=== PATIENT | male | born 1950 | race Caucasian/White ===

== ENCOUNTER → 2018-04-13 10:09 | Outpatient (CLI) | payer OTHER, SELFPAY ==
[2018-04-13 12:10] LABS: Add Manual Diff / Slide Review NO; Basophils Percent Auto 1.5 % (0-2); Eosinophils Percent Auto 7.5 % (2-4); Hematocrit 45.5 % (41-53); Hemoglobin 15.1 g/dL (13.5-17.5); Lymphocytes Percent Auto 27.1 % (25-40); Mean Corpuscular HGB Conc 33.3 % (30-36); Mean Corpuscular Volume 93.2 fL (80-100); Monocytes Percent Auto 12.5 % (3-14); Neutrophils Absolute Auto 3000 /uL (3000-5900); Neutrophils Percent Auto 51.4 % (50-75); Platelet Count 241 X10^3/uL (150-400); Red Blood Cell Count 4.88 X10^6/uL (4.5-5.9); Red Cell Distribution Width 13.3 % (11.6-14.8); White Blood Cell Count 5.9 X10^3/uL (4.5-11.0)
[2018-04-13 12:21] LABS: Alanine Aminotransferase 22 IU/L (21-72); Albumin 4.4 g/dL (3.5-5.0); Albumin Globulin Ratio 1.7 (1.0-2.8); Alkaline Phosphatase 50 U/L (38-126); Aspartate Aminotransferase 23 IU/L (17-59); BUN Creatinine Ratio 24.4 (6-22); Bilirubin Total 0.5 mg/dL (0.2-1.3); Blood Urea Nitrogen 22 mg/dL (9-20); Calcium 9.4 mg/dL (8.4-10.2); Carbon Dioxide 30 mmol/L (22-32); Chloride 103 mmol/L (98-107); Cholesterol 188 mg/dL (140-199); Estimated Glomerular Filt Rate > 60.0 mL/min (>60); Globulin 2.6 g/dL (1.7-4.1); Glucose 92 mg/dL (80-110); HDL Cholesterol 64 mg/dL (40-60); HEMOLYSIS < 15 (0-50); LDL Cholesterol Calculated 111 mg/dL (<100); Potassium 4.4 mmol/L (3.4-5.1); Sodium 143 mmol/L (137-145); Triglycerides 64 mg/dL (35-150)
[2018-04-13 12:54] LABS: Prostate Specific Antigen Scrn 2.52 ng/mL (0.1-4.0)
== END ==
PROVIDERS: PCP Family Medicine; Visit Provider Family Medicine
DX: E78.5 Hyperlipidemia, unspecified (principal); Z12.5 Encounter for screening for malignant neoplasm of prostate
CPT/HCPCS: 36415; 80053; 80061; 84443; 85025; G0103

== ENCOUNTER → 2019-05-25 08:18 | Outpatient (CLI) | payer OTHER, SELFPAY ==
[2019-05-25 09:06] LABS: Add Manual Diff / Slide Review NO; Basophils Absolute Auto 100 /uL (0-100); Basophils Percent Auto 1.3 % (0-2); Eosinophils Absolute Auto 400 /uL (0-450); Eosinophils Percent Auto 7.8 % (2-4); Hematocrit 44.3 % (41-53); Lymphocytes Absolute Auto 1300 /uL (1100-4500); Mean Corpuscular HGB Conc 33.9 % (30-36); Mean Corpuscular Hemoglobin 31.1 PG (26-34); Mean Corpuscular Volume 91.7 fL (80-100); Monocytes Absolute Auto 700 /uL (0-900); Monocytes Percent Auto 13.2 % (3-14); Neutrophils Absolute Auto 2800 /uL (1500-7000); Neutrophils Percent Auto 52.7 % (50-75); Platelet Count 237 X10^3/uL (150-400); Red Blood Cell Count 4.82 X10^6/uL (4.5-5.9); Red Cell Distribution Width 13.5 % (11.6-14.8); White Blood Cell Count 5.4 X10^3/uL (4.5-11.0)
[2019-05-25 09:20] LABS: Alanine Aminotransferase 15 IU/L (<50); Albumin 4.3 g/dL (3.5-5.0); Albumin Globulin Ratio 1.6 (1.0-2.8); Alkaline Phosphatase 52 U/L (38-126); Aspartate Aminotransferase 22 IU/L (17-59); BUN Creatinine Ratio 21.1 (6-22); Bilirubin Total 0.7 mg/dL (0.2-1.3); Blood Urea Nitrogen 19 mg/dL (9-20); Calcium 9.7 mg/dL (8.4-10.2); Carbon Dioxide 31 mmol/L (22-32); Chloride 103 mmol/L (98-107); Cholesterol 183 mg/dL (140-199); Estimated Glomerular Filt Rate > 60.0 mL/min (>60); Globulin 2.7 g/dL (1.7-4.1); Glucose 99 mg/dL (80-110); HDL Cholesterol 54 mg/dL (40-60); HEMOLYSIS < 15 (0-50); LDL Cholesterol Calculated 107 mg/dL (<100); Potassium 4.2 mmol/L (3.4-5.1); Sodium 142 mmol/L (137-145); Triglycerides 109 mg/dL (35-150)
[2019-05-25 09:46] LABS: Prostate Specific Antigen Scrn 2.96 ng/mL (0.1-4.0)
[2019-05-25 11:08] LABS: Thyroid Stimulating Hormone 4.61 uIU/mL (0.47-4.68)
== END ==
PROVIDERS: PCP Family Medicine; Visit Provider Family Medicine
DX: Z12.5 Encounter for screening for malignant neoplasm of prostate (principal); Z13.1 Encounter for screening for diabetes mellitus; Z13.220 Encounter for screening for lipoid disorders; Z13.29 Encounter for screening for other suspected endocrine disorder; Z13.6 Encounter for screening for cardiovascular disorders
CPT/HCPCS: 36415; 80053; 80061; 84443; 85025; G0103

== ENCOUNTER → 2020-10-09 09:41 | Outpatient (CLI) | payer OTHER, SELFPAY ==
[2020-10-09 10:22] LABS: COVID19 -Nasal RAPID Negative (Negative)
== END ==
PROVIDERS: PCP Family Medicine; Visit Provider Surgery
DX: Z20.822 Contact with and (suspected) exposure to COVID-19 (principal)
CPT/HCPCS: 87635; C9803

== ENCOUNTER 2020-10-12 08:10 | Day surgery (SDC) | payer OTHER, SELFPAY ==
--- NOTE | 2020-10-12 | PATH_ITS ---
[facility] Accession Number: [id number] . 01 Material submitted: . PART A: colon - DESCENDING COLON POLYP PART B: colon - DESCENDING COLON POLYP 30CM . 01 Clinical history: . SCREENING COLONOSCOPY . 02 Diagnosis: A. Descending Colon, Polyp, Biopsy: Sessile serrated adenoma. . B. Descending Colon, Polyp 30 cm, Biopsy: Tubular adenoma. [facility] 10/14/2020 1338 Local . 02 Electronically signed: . Irais Rosen MD, Pathologist NPI- [id number] . 01 Gross description: . Part A: DESCENDING COLON POLYP: Received in formalin is 1 fragment(s) of lopes, soft tissue measuring 0.4 x 0.3 x 0.3 cm submitted entirely in 1 cassette(s) Part B: DESCENDING COLON POLYP 30CM: Received in formalin is 1 fragment(s) of lopes, soft tissue measuring 1.0 x 0.6 x 0.3 cm submitted entirely in 1 cassette(s) /PREMA 10/13/2020 0917 Local . 02 Pathologist provided ICD-10: D12.4 . 02 CPT . 063513, [id number] Performed at: 01 [facility] [address], [place], [place] [id number] MD Jose Enciso MD Phone: [phone] Performed at: 02 [facility] [address] [place], [place] [id number] MD Irais Rosen MD Phone: [phone]
[2020-10-12] MEDS: LACTATED RINGERS 1,000 ML 200 ML IV (08:36)
[2020-10-12 08:37] VITALS: BP 110/70; PULSE 51; RESP 14; TEMP 36.2; O2SAT 96; BMI 24.3
--- NOTE | 2020-10-12 09:42 | PM.HP.1 ---
History of Present Illness History of Present Illness Date Patient Seen: 10/12/20 Time Patient Seen: 09:42 Chief complaint: SCREENING COLONOSCOPY Narrative: The patient presents for colorectal sreening. He had a previously normal colonoscopy 12 years ago. No personal or family history of colon cancer. On further history denies any recent gastrointestinal symptoms. No nausea, vomiting, abdominal pain, loss of appetite, unexplained weight loss, change in bowel habits, diarrhea, constipation, melena, hematochezia, or bright red blood per rectum. Patient History Medical History Anxiety (~2011) Dermatitis Rash Family & Social History Family History Father Heart disease Social History: household members spouse Tobacco & Substance use: Smoking Status Never smoker alcohol intake current alcohol intake frequency 0-2 drinks per day Substance Use Type does not use Meds Home Medications and Allergies Home Medications Medication Instructions Recorded Confirmed Type triamcinolone acetonide 0.1 % 1 applictn TOP BID #30 gram 10/18/19 10/12/20 Rx topical cream fluoxetine 20 mg capsule 20 mg PO QDAY #90 cap 06/23/20 10/12/20 Rx lovastatin 40 mg tablet 40 mg PO HS #90 tab 06/23/20 10/12/20 Rx Allergies Allergy/AdvReac Type Severity Reaction Status Date / Time No Known Drug Allergies Allergy Verified 10/12/20 08:31 Review of Systems Review of Systems ROS: Yes All systems reviewed with the patient and are negative except as otherwise documented Exam Vital Signs (past 8 hours): - 10/12/20 08:37 Temperature 97.1 F L Pulse Rate 51 L Respiratory Rate 14 Blood Pressure 110/70 Pulse Oximetry 96 Oxygen Delivery Method Room Air Narrative Exam Narrative: GENERAL-well developed adult male, no acute distress HEENT-no scleral icterus, hearing intact NECK-no JVD, trachea midline CVS- regular rate, no peripheral edema RESP-unlabored respiratory effort, no audible wheezing GI-soft, nontender nondistended MSK-no cyanosis or clubbing, extremities without deformity SKIN-warm, dry NEURO-alert and oriented, no focal deficits PYSCH-Appropriate mood and affect Assessment & Plan Assessment & Plan narrative: The patient requires colorectal screening and colonoscopy is recommended. Technical details were discussed. Risks, benefits, alternatives explained. Risks including but not limited to myocardial infarction, aspiration, bleeding, pain, missed lesion, incomplete examination, need for further radiographic studies, colonic perforation, and need for major abdominal surgery were discussed. All questions were answered to their satisfaction, and they are in agreement with this plan.
[2020-10-12] MEDS: MIDAZOLAM 5 MG/5 ML VIAL IV (09:51)
[2020-10-12] MEDS: fentaNYL 250 MCG/5 ML INJ IV (09:51)
[2020-10-12 10:10] VITALS: BP 132/74; PULSE 48; RESP 14; TEMP 36.6; O2SAT 97
--- NOTE | 2020-10-12 10:11 | P.OP.ENDO_ITS ---
Operative Date/Time/Diagnoses Date of procedure: 10/12/20 Time of procedure: 10:11 Pre-op diagnosis: Screening colonoscopy Post-op diagnosis: same Procedure & Clinicians Study performed: Colonoscopy, polypectomy Same procedure as scheduled: Yes Indications: Screening colonoscopy Surgeon: Jorden Galdamez Procedure Notes Procedure in detail: Medications: Conscious sedation using 5 mg IV midazolam and 150 mcg IV of fentanyl The history and physical was performed/updated and the patient is ASA class is 2. The procedure was discussed in detail with the patient. Potential risks complications including infection, bleeding, missed diagnosis, perforation, need for surgery, and were explained. Their questions were answered and informed consent was obtained. Patient was brought to the procedure room and placed standard monitoring eq uipment. The patient's vital signs were monitored continuously throughout the entire procedure. Prior to starting time-out was performed. The patient was placed in the left lateral recumbent position. Procedural sedation was administered. Examination began with a thorough inspection of the perianal area there was no evidence of fissures, fistulae, external hemorrhoids or cutaneous malignancy. The colonoscopy scope was then placed into the anal canal and was advanced to the cecum, which was identified by the ileocecal valve, the appendiceal orifice and the confluence of the taenia. The scope was then slowly withdrawn examining colon thoroughly in all directions, irrigating it of any residual stool. 1. Descending colonic polyp 5 mm with biopsy forceps 2. Descending colonic polyp 1 cm removed with cold snare from 30 cm from the anal verge 3. Sigmoid diverticulosis The patient tolerated the procedure well. They will be discharged once criteria are met. The prep was of good/excellent quality. The withdrawl time was 11 minutes. The sedation time was 30 minutes. Specimen(s): other (Descending colonic polyp x2) Complications: none Impression: Colonic polyps Post-procedure Recommendations: Colonscopy in 5 years Disposition: same day surgery
[2020-10-12 10:15] VITALS: BP 132/74; PULSE 41; RESP 14; O2SAT 98
[2020-10-12 10:20] VITALS: BP 121/56; PULSE 43; RESP 14; O2SAT 98
[2020-10-12 10:25] VITALS: BP 112/67; PULSE 47; RESP 14; O2SAT 98
[2020-10-12 10:34] VITALS: BP 117/65; PULSE 45; RESP 71; TEMP 36.2; O2SAT 99
== END 2020-10-12 10:43 | disposition home or self-care (01) ==
PROVIDERS: PCP Family Medicine; Referring Provider Surgery; Visit Provider Surgery
PROC: 0DJD8ZZ Inspection of Lower Intestinal Tract, Via Natural or Artificial Opening Endoscopic (ICD-10-PCS; CPT 45378; principal; 2020-10-12 09:15)
DX: Z12.11 Encounter for screening for malignant neoplasm of colon (principal); F41.9 Anxiety disorder, unspecified; K57.30 Diverticulosis of large intestine without perforation or abscess without bleeding; D12.4 Benign neoplasm of descending colon
CPT/HCPCS: 45385; 45380; 99152; 99153; J2250; J3010

== ENCOUNTER → 2021-02-18 07:33 | Outpatient (CLI) | payer OTHER, SELFPAY ==
[2021-02-18 08:35] LABS: Add Manual Diff / Slide Review NO; Basophils Absolute Auto 100 /uL (0-100); Basophils Percent Auto 0.9 % (0-2); Eosinophils Absolute Auto 400 /uL (0-450); Eosinophils Percent Auto 4.6 % (2-4); Hematocrit 44.8 % (41-53); Hemoglobin 14.4 g/dL (13.5-17.5); Lymphocytes Absolute Auto 1800 /uL (1100-4500); Lymphocytes Percent Auto 21.1 % (25-40); Mean Corpuscular HGB Conc 32.2 % (30-36); Mean Corpuscular Hemoglobin 30.2 PG (26-34); Mean Corpuscular Volume 93.8 fL (80-100); Monocytes Absolute Auto 1100 /uL (0-900); Monocytes Percent Auto 12.7 % (3-14); Neutrophils Absolute Auto 5100 /uL (1500-7000); Neutrophils Percent Auto 60.7 % (50-75); Platelet Count 239 X10^3/uL (150-400); Red Blood Cell Count 4.78 X10^6/uL (4.5-5.9); Red Cell Distribution Width 13.6 % (11.6-14.8); White Blood Cell Count 8.4 X10^3/uL (4.5-11.0)
[2021-02-18 09:05] LABS: Alanine Aminotransferase 16 IU/L (<50); Albumin 4.1 g/dL (3.5-5.0); Albumin Globulin Ratio 1.8 (1.0-2.8); Alkaline Phosphatase 51 U/L (38-126); Aspartate Aminotransferase 21 IU/L (17-59); BUN Creatinine Ratio 24.7 (6-22); Bilirubin Total 0.6 mg/dL (0.2-1.3); Blood Urea Nitrogen 20 mg/dL (9-20); Calcium 9.8 mg/dL (8.4-10.2); Carbon Dioxide 31 mmol/L (22-32); Chloride 102 mmol/L (98-107); Cholesterol 214 mg/dL (140-199); Estimated Glomerular Filt Rate > 60.0 mL/min (>60); Globulin 2.3 g/dL (1.7-4.1); Glucose 94 mg/dL (80-110); HDL Cholesterol 75 mg/dL (40-60); HEMOLYSIS < 15 (0-50); LDL Cholesterol Calculated 117 mg/dL (<100); Potassium 4.3 mmol/L (3.4-5.1); Sodium 138 mmol/L (137-145); Total Protein 6.4 g/dL (6.3-8.2); Triglycerides 112 mg/dL (35-150)
[2021-02-18 09:32] LABS: Prostate Specific Antigen Scrn 3.27 ng/mL (0.1-4.0)
== END ==
PROVIDERS: PCP Family Medicine; Referring Provider Family Medicine; Visit Provider Family Medicine
DX: E78.2 Mixed hyperlipidemia (principal); F32.9 Major depressive disorder, single episode, unspecified; L30.9 Dermatitis, unspecified; R21 Rash and other nonspecific skin eruption; Z12.5 Encounter for screening for malignant neoplasm of prostate
CPT/HCPCS: 36415; 80053; 80061; 85025; G0103

== ENCOUNTER → 2022-02-21 08:15 | Outpatient (CLI) | payer OTHER, SELFPAY ==
[2022-02-21 09:29] LABS: Add Manual Diff / Slide Review NO; Basophils Absolute Auto 0 /uL (0-100); Basophils Percent Auto 0.5 % (0-2); Eosinophils Absolute Auto 200 /uL (0-450); Eosinophils Percent Auto 3.2 % (2-4); Hemoglobin 14.7 g/dL (13.5-17.5); Lymphocytes Absolute Auto 1600 /uL (1100-4500); Lymphocytes Percent Auto 28.4 % (25-40); Mean Corpuscular HGB Conc 33.4 % (30-36); Mean Corpuscular Hemoglobin 30.7 PG (26-34); Mean Corpuscular Volume 91.8 fL (80-100); Monocytes Absolute Auto 700 /uL (0-900); Monocytes Percent Auto 13.5 % (3-14); Neutrophils Absolute Auto 3000 /uL (1500-7000); Neutrophils Percent Auto 54.4 % (50-75); Platelet Count 275 X10^3/uL (150-400); Red Cell Distribution Width 13.2 % (11.6-14.8); White Blood Cell Count 5.6 X10^3/uL (4.5-11.0)
[2022-02-21 11:08] LABS: Alanine Aminotransferase 15 IU/L (<50); Albumin 4.1 g/dL (3.5-5.0); Albumin Globulin Ratio 1.6 (1.0-2.8); Alkaline Phosphatase 58 U/L (38-126); Aspartate Aminotransferase 19 IU/L (17-59); BUN Creatinine Ratio 20.9 (6-22); Bilirubin Total 0.5 mg/dL (0.2-1.3); Blood Urea Nitrogen 19 mg/dL (9-20); Calcium 9.2 mg/dL (8.4-10.2); Carbon Dioxide 31 mmol/L (22-32); Chloride 100 mmol/L (98-107); Cholesterol 193 mg/dL (140-199); Estimated Glomerular Filt Rate > 60 mL/min (>60); Globulin 2.6 g/dL (1.7-4.1); Glucose 92 mg/dL (80-110); HDL Cholesterol 50 mg/dL (40-60); HEMOLYSIS < 15 (0-50); LDL Cholesterol Calculated 118 mg/dL (<100); Potassium 4.6 mmol/L (3.4-5.1); Sodium 140 mmol/L (137-145); Total Protein 6.7 g/dL (6.3-8.2); Triglycerides 127 mg/dL (35-150)
[2022-02-21 11:31] LABS: Prostate Specific Antigen Scrn 3.52 ng/mL (0.1-4.0)
== END ==
PROVIDERS: PCP Family Medicine; Referring Provider Family Medicine; Visit Provider Family Medicine
DX: Z12.5 Encounter for screening for malignant neoplasm of prostate (principal); E78.2 Mixed hyperlipidemia; F32.9 Major depressive disorder, single episode, unspecified; F41.9 Anxiety disorder, unspecified
CPT/HCPCS: 36415; 80053; 80061; 85025; G0103

== ENCOUNTER → 2022-03-29 08:31 | Outpatient (CLI) | payer OTHER, SELFPAY ==
--- NOTE | 2022-03-29 08:33 | DI.RAD.S_ITS ---
PROCEDURE: XR FOOT RT MIN 3V INDICATIONS: RIGHT FOOT PAIN TECHNIQUE: 3 views of the foot were acquired. COMPARISON: [facility], , FOOT 3V RIGHT, 01/09/2015, 16:28. FINDINGS: Bones: No fractures or dislocations. No suspicious bony lesions. Soft tissues: No tibiotalar joint effusion. Again noted is thickening of the Achilles tendon near the attachment on the calcaneus with the presence of linear ossification consistent with remote tear. There is a plantar calcaneal spur. IMPRESSION: 1. Findings consistent with remote partial tear of the Achilles tendon. No evidence of acute bony abnormality of the right foot. Dictated by: Zay Muniz M.D. on 03/29/2022 at 11:11 Approved by: Zay Muniz M.D. on 03/29/2022 at 11:13
== END ==
PROVIDERS: PCP Family Medicine; Referring Provider Family Medicine; Visit Provider Family Medicine
DX: M79.671 Pain in right foot (principal); M77.31 Calcaneal spur, right foot
CPT/HCPCS: 73630

== ENCOUNTER → 2022-10-13 10:25 | Outpatient (CLI) | payer OTHER, SELFPAY ==
--- NOTE | 2022-10-13 10:26 | DI.RAD.S_ITS ---
PROCEDURE: XR KNEE RT 3V INDICATIONS: right knee pain TECHNIQUE: 3 views of the knee were acquired. COMPARISON: None. FINDINGS: Bones: Well corticated ossicle inferior to the patella. Osteophytic lipping most pronounced at the patella femoral compartment. No dislocations. No suspicious bony lesions. Soft tissues: Small joint effusion. No suspicious soft tissue calcifications. IMPRESSION: Well corticated ossicle inferior to the patella. This could be the sequelae of prior injury or bipartite patella. Moderate degenerative change at the patellofemoral compartment. MRI may be helpful for further evaluation. Dictated by: Gonsalo Dean M.D. on 10/13/2022 at 13:06 Approved by: Gonsalo Dean M.D. on 10/13/2022 at 13:09
== END ==
PROVIDERS: PCP Family Medicine; Referring Provider Family Medicine; Visit Provider Family Medicine
DX: M25.461 Effusion, right knee (principal); M25.561 Pain in right knee
CPT/HCPCS: 73562

== ENCOUNTER → 2023-01-03 10:48 | Outpatient (CLI) | payer OTHER, SELFPAY ==
--- NOTE | 2023-01-03 | DI.MRI.S_ITS ---
PROCEDURE: MR KNEE RT WO CON INDICATIONS: Unspecified internal derangement of right knee TECHNIQUE: Noncontrast sagittal PD fast spin echo and T2 fast spin echo with fat saturation, sagittal 3-D FLASH with fat saturation; coronal T1 spin echo and PD fast spin echo with fat saturation, and axial PD fast spin echo with fat saturation through the knee. COMPARISON: [facility], CR, XR KNEE RT 3V, 10/13/2022, 10:42. [facility], CR, XR KNEE STANDING BILATERAL, 12/27/2022, 14:13. FINDINGS: Image quality: Excellent. Anterior Cruciate Ligament: Intact. Posterior Cruciate Ligament: Intact. Medial Collateral Ligament: Mild thickening of the proximal medial collateral ligament is most likely secondary to a remote prior low-grade sprain. Lateral Collateral Ligament: Intact. Medial Meniscus: Complex tearing of the medial meniscus is seen. There is a radial component at the posterior root attachment measuring 6 mm in width with extrusion of the meniscal body beyond the femorotibial joint line. Superimposed horizontal oblique tearing is seen at the meniscal body extending to the middle third of the tibial articular surface with a small amount of inferiorly displaced meniscal tissue extending into the medial tibial gutter. Lateral Meniscus: Intact. Medial and Lateral Tendons: The semimembranosus tendon insertions and meniscocapsular junction appear intact. Visualized portions of the pes anserinus tendons appear normal. No abnormal bursal fluid. The long and short heads of the biceps femoris tendon appear intact. The popliteus tendon appears intact. No signs of posterolateral corner injury. Iliotibial band appears normal. Anterior Structures: The quadriceps and patellar tendons appear intact. No patellar subluxation. No femoral trochlear dysplasia or ventral trochlear prominence. Prominent soft tissue edema is seen at the superolateral aspect of the infrapatellar fat pad. Bones: Nondepressed subchondral fracture is seen in the weight-bearing portion of the medial femoral condyle measuring approximately 18 x 7 mm. There is focal fissuring of the overlying articular cartilage. Moderate osseous edema is seen throughout the medial femoral condyle. Small nonedematous ossification at the inferior pole of the patella may be secondary to remote prior trauma or prior Sinding Nelson Chayito disease. Medial Femorotibial Cartilage: High-grade versus full-thickness cartilage loss in the weight-bearing portion of the medial femorotibial compartment. Lateral Femorotibial Cartilage: Grade 2 chondromalacia at the posterior weight-bearing portion of the lateral tibial plateau. Patellofemoral Cartilage: Grade 3-4 chondromalacia at the median ridge/medial facet of the patella with subchondral cystic changes as well as at the medial femoral trochlea. Soft Tissues: A small amount of joint fluid is present. Small medial popliteal cyst. The musculature surrounding the knee is normal in bulk. Nonspecific prepatellar subcutaneous soft tissue edema. IMPRESSION: 1. Nondepressed subchondral fracture at the central weight-bearing portion of the medial femoral condyle with moderate surrounding osseous edema. 2. Complex tearing of the medial meniscus with a radial component at the posterior root attachment and a horizontal oblique component at the meniscal body extending to the middle third of the tibial articular surface with a small amount of meniscal tissue displaced inferiorly into the medial tibial gutter. 3. Remote prior grade 1 sprain of the proximal medial collateral ligament. 4. 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 Mild grade 2 chondromalacia in the lateral compartment. 5. Ossification at the inferior pole of the patella is likely related to prior trauma versus prior Sinding Nelson Chayito disease. Moderate edema at the superolateral aspect of the infrapatellar fat pad can be seen in the setting of lateral femoral condyle-patellar tendon friction syndrome. 6. Small joint effusion. Small medial popliteal cyst. Approved by: Fernando Gaines M.D. on 01/03/2023 at 14:20
== END ==
PROVIDERS: PCP Family Medicine; Referring Provider Orthopaedic Surgery Foot and Ankle Surgery; Visit Provider Orthopaedic Surgery Foot and Ankle Surgery
DX: S72.431A Displaced fracture of medial condyle of right femur, initial encounter for closed fracture (principal); S83.231A Complex tear of medial meniscus, current injury, right knee, initial encounter; S83.411A Sprain of medial collateral ligament of right knee, initial encounter; M22.41 Chondromalacia patellae, right knee; M25.461 Effusion, right knee; M71.21 Synovial cyst of popliteal space [Baker], right knee; M23.91 Unspecified internal derangement of right knee
CPT/HCPCS: 73721

== ENCOUNTER → 2023-05-30 08:27 | Outpatient (CLI) | payer OTHER, SELFPAY ==
[2023-05-30 09:38] LABS: Add Manual Diff / Slide Review NO; Basophils Absolute Auto 100 /uL (0-100); Basophils Percent Auto 1.3 % (0-2); Eosinophils Absolute Auto 500 /uL (0-450); Eosinophils Percent Auto 8.2 % (2-4); Hemoglobin 14.7 g/dL (13.5-17.5); Lymphocytes Absolute Auto 1400 /uL (1100-4500); Lymphocytes Percent Auto 24.7 % (25-40); Mean Corpuscular HGB Conc 34.2 % (30-36); Mean Corpuscular Hemoglobin 31.4 PG (26-34); Mean Corpuscular Volume 91.9 fL (80-100); Monocytes Absolute Auto 600 /uL (0-900); Monocytes Percent Auto 11.1 % (3-14); Neutrophils Absolute Auto 3100 /uL (1500-7000); Neutrophils Percent Auto 54.7 % (50-75); Platelet Count 265 X10^3/uL (150-400); Red Blood Cell Count 4.68 X10^6/uL (4.5-5.9); Red Cell Distribution Width 13.5 % (11.6-14.8); White Blood Cell Count 5.7 X10^3/uL (4.5-11.0)
[2023-05-30 10:27] LABS: Alanine Aminotransferase 15 IU/L (<50); Albumin Globulin Ratio 1.5 (1.0-2.8); Alkaline Phosphatase 53 U/L (38-126); Aspartate Aminotransferase 22 IU/L (17-59); BUN Creatinine Ratio 22.1 (6-22); Bilirubin Total 0.7 mg/dL (0.2-1.3); Blood Urea Nitrogen 19 mg/dL (9-20); Calcium 9.9 mg/dL (8.4-10.2); Carbon Dioxide 29 mmol/L (22-32); Chloride 101 mmol/L (98-107); Cholesterol 208 mg/dL (140-199); Estimated Glomerular Filt Rate > 60 mL/min (>60); Globulin 2.6 g/dL (1.7-4.1); Glucose 97 mg/dL (80-110); HDL Cholesterol 70 mg/dL (40-60); HEMOLYSIS < 15 (0-50); LDL Cholesterol Calculated 119 mg/dL (<100); Potassium 4.8 mmol/L (3.4-5.1); Sodium 137 mmol/L (137-145); Total Protein 6.6 g/dL (6.3-8.2); Triglycerides 96 mg/dL (35-150)
[2023-05-30 11:00] LABS: Prostate Specific Antigen 3.25 ng/mL (0.10-4.00)
[2023-05-31 03:11] LABS: Apolipoprotein B 94 mg/dL (<90)
== END ==
PROVIDERS: PCP Family Medicine; Referring Provider Family Medicine; Visit Provider Family Medicine
DX: Z13.6 Encounter for screening for cardiovascular disorders (principal); Z12.5 Encounter for screening for malignant neoplasm of prostate; Z79.899 Other long term (current) drug therapy
CPT/HCPCS: 36415; 80053; 80061; 82172; 83695; 84153; 85025

== ENCOUNTER → 2023-09-04 09:10 | Outpatient (CLI) | payer OTHER, SELFPAY ==
--- NOTE | 2023-09-04 09:11 | DI.US.S_ITS ---
PROCEDURE: US CAROTID DOPPLER BI INDICATIONS: Cardiomegaly;Bruit of left carotid TECHNIQUE: Color and pulse Doppler interrogation was performed of both carotid systems, with image documentation and velocity measurements. COMPARISON: None. FINDINGS: Stenosis calculations are based on SRU (Society of Radiologists in Ultrasound) criteria. The flow velocities and the arterial waveforms are normal within both carotid arterial systems. Atherosclerotic plaque is seen on both sides. The estimated degree of internal carotid artery stenosis is less than 50%. Antegrade flow is confirmed within both vertebral arteries. IMPRESSION: No hemodynamically significant stenosis is seen. Atherosclerotic plaque is noted bilaterally. Dictated by: Sage Walls M.D. on 09/04/2023 at 10:38 Approved by: Sage Walls M.D. on 09/04/2023 at 10:38
--- NOTE | 2023-09-04 09:11 | DI.ECHO.S_ITS ---
[place] [facility]+ [facility] : : [address] : : [place] : : [address] : : Phone: [phone] Echocardiogram Report + + :Name: SERGIO BETH Study Date: 09/04/2023 Height: 70 in : :Hospital ReadingLocation: Weight: 170 lb : : Gender: Male BSA: 1.9 m2 : :: 1950 Age: 73 yrs BP: 125/68 mmHg: :Reason For Study: CARDIOMEGALY, BRUIT : :Ordering Physician: ANNA, : :PARIS Performed By: James Damico : :Referring: PARIS CASTILLO : + + Interpretation Summary 1. The left ventricular contractility is normal. Estimated ejection fraction is greater than 55% without segmental wall motion abnormalities. No LVH is noted. Impaired relaxation present. 2. The right ventricular contractility is normal. 3. The left atrium is moderately dilated. All other cardiac chambers appear to be of normal size. 4. There is moderate to severe calcifications noted on the aortic valve. There is suggestion that the aortic valve may be bicuspid. Mean gradient across the aortic valve is 30 mmHg. Trace aortic insufficiency is present. Dimensionless index is 0.31 consistent with moderate aortic valvular stenosis. 5. No obvious intracardiac shunts noted. 6. No obvious intracardiac masses nor thrombi appreciated. 7. No hemodynamically significant pericardial effusion present. Conclusion: Normal biventricular systolic function with possible bicuspid aortic valve with moderate stenosis. Procedure: A two-dimensional transthoracic echocardiogram with color flow and Doppler was performed. The study quality was technically adequate. There is no prior echocardiogram noted for this patient. The heart rate ranged between 41-61 bpm during the study. Left Ventricle: The left ventricle is normal in size and wall thickness. The ejection fraction is estimated to be 55-60%. Right Ventricle: The right ventricle is normal in size and function. The right ventricular systolic function is normal. Atria: The left atrium is moderately dilated. Right atrium not well visualized. The interatrial septum grossly appears intact with no obvious evidence for an atrial septal defect. Mitral Valve: The mitral valve is normal in structure and function. There is no mitral valve stenosis. There is mild mitral regurgitation. Aortic Valve: The aortic valve is severely calcified. Functionally Bicuspid AV?. There is moderate aortic stenosis. The peak aortic velocity is 3.62 m/sec. The aortic valve mean gradient is 30.3 mmHg. There is trace aortic regurgitation. Tricuspid Valve: The tricuspid valve is normal in structure and function. There is no tricuspid stenosis. There is trace tricuspid regurgitation. The right ventricular systolic pressure is estimated to be at least 36 mmHg based on an estimated right atrial pressure of 3 mm Hg. Pulmonic Valve: The pulmonic valve is not well visualized. There is no pulmonic valvular stenosis. There is no pulmonic valvular regurgitation. Great Vessels: The aortic root is normal size. The ascending aorta is at the upper limits of normal in size. The IVC is of normal diameter and collapses greater than 50% with a sniff. This suggests a low right atrial pressure of 3 mm Hg. Pericardium/ Pleura There is no pericardial effusion. There is no pleural effusion. MMode/2D Measurements & Calculations LVIDd: 5.4 cm LVOT diam: 1.9 cm LVIDs: 3.6 cm Ao root diam: 3.1 cm FS: 33.2 % asc Aorta Diam: 3.7 cm IVSd: 1.1 cm Ao Arch Diam (Prox Trans): 2.7 cm LVPWd: 1.0 cm LV wong. diameter/BSA (cm/m^2): 2.8 LV sys. diameter/BSA (cm/m^2): 1.9 LA A2 area: 24.7 cm2 RA long axis: 4.6 cm LA A4 area: 21.3 cm2 RA area: 17.5 cm2 LA length (vol): 5.5 cm RA vol: 56.9 ml LA vol: 81.3 ml RA : 29.2 ml/m2 LA vol index: 41.7 ml/m2 IVC diam: 1.8 cm RVD1 (basal): 3.6 cm RVD2 (mid): 3.7 cm TAPSE: 3.1 cm Doppler Measurements & Calculations Ao V2 max: 362.3 cm/sec LVOT Max Espinoza: 109.7 cm/sec Ao V2 mean: 262.0 cm/sec LV V1 max P.8 mmHg Ao max P.5 mmHg LV V1 VTI: 29.8 cm Ao mean P.3 mmHg PREMA(I,D): 0.89 cm2 Ao V2 VTI: 94.7 cm PREMA(V,D): 0.86 cm2 sev ratio: 0.31 PREMA indexed to BSA (cm^2/m^2): 0.46 MV E max espinoza: 75.2 cm/sec TR max espinoza: 289.5 cm/sec MV A max espinoza: 86.4 cm/sec TR max P.5 mmHg MV E/A: 0.87 PA V2 max: 134.8 cm/sec Med Peak E' Espinoza: 6.5 cm/sec PA V2 mean: 80.1 cm/sec E/E' med: 11.6 PA mean P.0 mmHg Lat Peak E' Espinoza: 8.2 cm/sec PA pr(Accel): 32.8 mmHg E/E' lat: 9.2 E/e' average: 10.4 MV dec time: 0.21 sec SV(LVOT): 84.6 ml Reading Physician:
== END ==
LOC: ECHO 09:10
PROVIDERS: PCP Family Medicine; Referring Provider Internal Medicine; Visit Provider Internal Medicine
DX: I08.0 Rheumatic disorders of both mitral and aortic valves (principal); I65.23 Occlusion and stenosis of bilateral carotid arteries; R09.89 Other specified symptoms and signs involving the circulatory and respiratory systems; R01.1 Cardiac murmur, unspecified; E78.2 Mixed hyperlipidemia
CPT/HCPCS: 93306; 93880

== ENCOUNTER → 2023-10-04 14:37 | Outpatient (CLI) | payer OTHER, SELFPAY ==
--- NOTE | 2023-10-04 14:38 | DI.RAD.S_ITS ---
PROCEDURE: XR ANKLE RT MIN 3V INDICATIONS: SWELLING TECHNIQUE: 3 views of the ankle were acquired. COMPARISON: [facility], , ANKLE 3 VIEWS RIGHT, 11/27/2012, 12:21. FINDINGS: Bones: Small osseous fragment adjacent to the tip of the distal fibula. Ankle mortise is normally aligned. No suspicious bony lesions. Plantar and posterior calcaneal enthesophytes. Soft tissues: No tibiotalar joint effusion. Achilles tendon appears normal. Soft tissue swelling over the lateral malleolus IMPRESSION: Small osseous fragment is seen at the tip of the distal fibula, may represent acute avulsion fracture. Recommend correlation with recent trauma. Dictated by: Steven Gatson M.D. on 10/04/2023 at 15:58 Approved by: Steven Gaston M.D. on 10/04/2023 at 16:00
== END ==
PROVIDERS: PCP Family Medicine; Referring Provider Physician Assistant; Visit Provider Physician Assistant
DX: S99.911A Unspecified injury of right ankle, initial encounter (principal); M25.571 Pain in right ankle and joints of right foot; W11.XXXA Fall on and from ladder, initial encounter
CPT/HCPCS: 73610

== ENCOUNTER → 2024-05-28 10:01 | Outpatient (CLI) | payer OTHER, SELFPAY ==
[2024-05-28 10:22] LABS: Add Manual Diff / Slide Review NO; Basophils Absolute Auto 100 /uL (0-100); Basophils Percent Auto 1.3 % (0-2); Eosinophils Absolute Auto 400 /uL (0-450); Hematocrit 44.7 % (41-53); Lymphocytes Absolute Auto 1400 /uL (1100-4500); Lymphocytes Percent Auto 23.5 % (25-40); Mean Corpuscular HGB Conc 33.6 % (30-36); Mean Corpuscular Hemoglobin 31.1 PG (26-34); Mean Corpuscular Volume 92.6 fL (80-100); Monocytes Absolute Auto 600 /uL (0-900); Monocytes Percent Auto 9.8 % (3-14); Neutrophils Absolute Auto 3600 /uL (1500-7000); Neutrophils Percent Auto 59.4 % (50-75); Platelet Count 269 X10^3/uL (150-400); Red Blood Cell Count 4.83 X10^6/uL (4.5-5.9); Red Cell Distribution Width 13.9 % (11.6-14.8)
[2024-05-28 11:02] LABS: Alanine Aminotransferase 17 IU/L (<50); Albumin 4.4 g/dL (3.5-5.0); Albumin Globulin Ratio 1.9 (1.0-2.8); Alkaline Phosphatase 54 U/L (38-126); Aspartate Aminotransferase 25 IU/L (17-59); BUN Creatinine Ratio 28.7 (6-22); Bilirubin Total 0.7 mg/dL (0.2-1.3); Blood Urea Nitrogen 25 mg/dL (9-20); Carbon Dioxide 30 mmol/L (22-32); Chloride 105 mmol/L (98-107); Cholesterol 228 mg/dL (140-199); Estimated Glomerular Filt Rate > 60 mL/min (>60); Globulin 2.3 g/dL (1.7-4.1); Glucose 108 mg/dL (80-110); HDL Cholesterol 86 mg/dL (40-60); HEMOLYSIS < 15 (0-50); LDL Cholesterol Calculated 127 mg/dL (<100); Potassium 4.8 mmol/L (3.4-5.1); Sodium 138 mmol/L (137-145); Total Protein 6.7 g/dL (6.3-8.2); Triglycerides 74 mg/dL (35-150)
[2024-05-28 11:32] LABS: Prostate Specific Antigen 3.41 ng/mL (0.10-4.00)
[2024-05-29 03:35] LABS: Apolipoprotein B 100 mg/dL (<90)
[2024-05-30 04:08] LABS: Lipoprotein (a) 133.1 nmol/L (<75.0)
== END ==
PROVIDERS: PCP Family Medicine; Referring Provider Family Medicine; Visit Provider Family Medicine
DX: E78.2 Mixed hyperlipidemia (principal); Z13.9 Encounter for screening, unspecified; Z12.5 Encounter for screening for malignant neoplasm of prostate; Z13.6 Encounter for screening for cardiovascular disorders
CPT/HCPCS: 36415; 80053; 80061; 82172; 83695; 84153; 84443; 85025

== ENCOUNTER → 2025-01-16 16:25 | Outpatient (CLI) | payer OTHER, SELFPAY ==
--- NOTE | 2025-01-16 16:27 | DI.RAD.S_ITS ---
PROCEDURE: XR KNEE LT 4V INDICATIONS: Swelling L knee TECHNIQUE: 4 views of the knee were acquired. COMPARISON: [facility], CR, XR KNEE RT 3V, 10/13/2022, 10:42. FINDINGS: Bones: No acute fractures or dislocations. Old healed proximal fibular and tibial diaphyseal fractures. Moderate medial and lateral tibiofemoral and moderate to severe patellofemoral compartment narrowing with associated osteophytosis. No suspicious bony lesions. Soft tissues: No joint effusion. No suspicious soft tissue calcifications. IMPRESSION: KL grade 2 tricompartmental osteoarthritis without evidence of acute bony abnormality or significant effusion. Dictated by: Scott Alex M.D. on 01/20/2025 at 5:09 Approved by: Scott Alex M.D. on 01/20/2025 at 5:12
--- NOTE | 2025-01-16 16:27 | DI.RAD.S_ITS ---
PROCEDURE: XR KNEE RT 4V INDICATIONS: Gait abnormality; OA R knee TECHNIQUE: 4 views of the knee were acquired. COMPARISON: [facility], , XR KNEE RT 3V, 10/13/2022, 10:42. FINDINGS: Bones: No fractures or dislocations. Moderate to severe medial and moderate lateral tibiofemoral and patellofemoral compartment narrowing with associated osteophytosis. Varus angulation. No suspicious bony lesions. Soft tissues: No joint effusion. No suspicious soft tissue calcifications. IMPRESSION: KL grade 3 tricompartmental osteoarthritis without evidence of acute osseous abnormality. Varus angulation. Dictated by: Scott Alex M.D. on 01/20/2025 at 5:12 Approved by: Scott Alex M.D. on 01/20/2025 at 5:22
== END ==
LOC: RAD 16:27
PROVIDERS: PCP Family Medicine; Referring Provider Physician Assistant; Visit Provider Physician Assistant
DX: M17.0 Bilateral primary osteoarthritis of knee (principal); R26.9 Unspecified abnormalities of gait and mobility
CPT/HCPCS: 73564